=== PATIENT | female | born 1950 | race Caucasian/White ===

== ENCOUNTER → 2017-04-21 | Day surgery (SDC) | payer BC ==
[2017-04-10 15:35] VITALS: Ht 167.6 cm; Wt 57.3 kg
[~2017-04-21] VITALS: Ht 167.6 cm; Wt 57.3 kg
[~2017-04-21] MED LIST: ATROPINE SULFATE 0.1 MG/ML 5ML SYR IV PRN; CHOL2000 PO; EpHEDrine SULFATE INJ 50 MG/ML AMP IV PRN; FLAX1CAP11 PO; GLUCTAB7 PO; LEVE500T14 PO; LIDOCAINE HCL 2% 2 ML VIAL (20MG/ML) ONE; MESA800T6 PO; MULT-506 PO; PHENYLEPHRINE 100MCG/ML 5ML SYR ONE; PROPOFOL IV EMULSION 10 MG/ML 20 ML VIAL IV ONE
--- NOTE | 2017-04-21 11:49 | Endo History and Physical ---
History & Physical Date of Service: Apr 21, 2017. Chief Complaint: ULCERATIVE COLITIS Referring Physician: DR DIETRICH History of Present Illness 66 yo CF who presents for colonoscopy secondary to Ulcerative colitis. Past Medical History Asthma, Gastrointestinal Disorder, Seizure Disorder Past Surgical History Hx Cardiac Surgery: No Hx Internal Defibrillator: No Hx Pacemaker: No Hx Abdominal Surgery: Yes (OVARIAN CYST REMOVAL) Hx Post-Op Nausea and Vomiting: Yes Hx Cancer Surgery: Yes (MOHS ON NOSE) Hx Thoracic Surgery: No Hx Orthopedic: Yes (LEFT BUNIONECTOMY) Hx Urinary Tract Surgery: No Family History Colon CA Social History Smoking Status: Never Smoker Hx Substance Use: No Hx Alcohol Use: Yes (RARELY) Allergies Coded Allergies: No Known Allergies (Unverified , 04/21/17) Current Medications Reported Home Medications Medications Dose Route/Sig Max Daily Dose Days Date Category Flax Seed Oil (Flaxseed (Linseed)) 1 Cap Cap 1 Cap PO QAM 04/10/17 Reported Vitamin D3 (Cholecalciferol) 2,000 Unit Cap 1 Cap PO QAM 90 04/10/17 Reported Keppra Xr (Levetiracetam) 500 Mg Tab 1,000 Mg PO BID 03/09/14 Reported Multivitamin (Multivitamins) Tab 1 Tab PO QAM 03/09/14 Reported Asacol Hd (Mesalamine) 800 Mg Tab 800 Mg PO TID 03/09/14 Reported Vital Signs Weight (Kilograms): 57.27 Height (Feet): 5 Height (Inches): 6 Date Time Temp Pulse Resp B/P (MAP) Pulse Ox O2 Delivery O2 Flow Rate FiO2 04/21/17 11:02 36.6 92 18 113/66 (82) 98 Room Air Physical Exam General Appearance: WD/WN, no apparent distress Respiratory/Chest: Auscultation: breath sounds normal Cardiovascular: Heart Auscultation: RRR Abdomen: Bowel Sounds: normal Inspection & Palpation: soft, non-distended, no tenderness, guarding & rebound Assessment and Plan Assessment: 66 yo CF who presents for colonoscopy secondary to Ulcerative colitis. Plan: Proceed with colonoscopy.
--- NOTE | 2017-04-21 12:37 | Discharge Instructions ---
Endoscopy Patient Instructions Date / Procedure(s) Performed Apr 21, 2017. Colonoscopy Allergy Information Coded Allergies: No Known Allergies (Unverified , 04/21/17) Discharge Date / Findings Apr 21, 2017. Random colon biopsies Internal hemorrhoids Medication Instructions OK to resume all medications today as prescribed Reported Home Medications Medications Dose Route/Sig Max Daily Dose Days Date Category Flax Seed Oil (Flaxseed (Linseed)) 1 Cap Cap 1 Cap PO QAM 04/10/17 Reported Vitamin D3 (Cholecalciferol) 2,000 Unit Cap 1 Cap PO QAM 90 04/10/17 Reported Keppra Xr (Levetiracetam) 500 Mg Tab 1,000 Mg PO BID 03/09/14 Reported Multivitamin (Multivitamins) Tab 1 Tab PO QAM 03/09/14 Reported Asacol Hd (Mesalamine) 800 Mg Tab 800 Mg PO TID 03/09/14 Reported Provider Instructions Activity Restrictions - No exercising or heavy lifting for 24 hours. - Do not drink alcohol the day of the procedure. - Do not drive a car or operate machinery until the day after the procedure. - Do not make any important decisions or sign important papers in 24 hours after the procedure. Following Day: - Return to full activity which may include returning to work/school. Diet Start your diet with liquids and light foods (jello, soup, juice, toast). Then eat your usual diet if not nauseated. Treatment For Common After Affects For mild abdominal pain, bloating, or excessive gas: - Rest - Eat lightly - Lie on right side Follow-Up Information Follow-up with DR DIETRICH as scheduled Anesthesia Information What You Should Know You have had a procedure that required some medicine to reduce anxiety and discomfort. This treatment is called moderate sedation. After receiving the treatment, you may be sleepy, but you will be able to breathe on your own. The effects of the treatment may last for several hours. Follow these instructions along with Activity/Diet recommendations noted above: * Do NOT do anything where dizziness or clumsiness would be dangerous. * Rest quietly at home today, then you can be up and about tomorrow. * Have a responsible person stay with you the rest of today. * You may have had an I.V. today. If so, you may take the dressing off later today. Recommendations Call your doctor if: * Trouble breathing * Continuous vomiting for more than 24 hours * Temperature above 101 degrees * Severe abdominal pain or bloating * Pain not relieved by pain medicine ordered * There is increased drainage or redness from any incision * A large amount of rectal bleeding greater than 2-3 tablespoons. (If you had a polyp/s removed or have hemorrhoids, a small amount of blood - from the rectum is to be expected.) * You have any unanswered questions or concerns. IN THE EVENT OF A SERIOUS EMERGENCY, GO TO THE NEAREST EMERGENCY ROOM Your discharge instructions were prepared by provider Andrzej Franklin. Patient Instructions Signature Page Adilene Allen Patient (or Guardian) Signature/Date: I have read and understand the instructions given to me by my caregivers. Caregiver/RN/Doctor Signature/Date: The above-named patient and/or guardian has received patient instructions on this date. + Original Patient Signature Page (only) stays with chart. Please make copy for patient.
--- NOTE | 2017-04-21 12:44 | GI REPORT ---
Procedure Date: 04/21/2017 11:57 AM Procedure: Colonoscopy Indications: Follow-up of chronic ulcerative pancolitis Medicines: Monitored Anesthesia Care Complications: No immediate complications. Estimated Blood Loss: Estimated blood loss: none. Procedure: Pre-Anesthesia Assessment: - Prior to the procedure, a History and Physical was performed, and patient medications and allergies were reviewed. The patient's tolerance of previous anesthesia was also reviewed. The risks and benefits of the procedure and the sedation options and risks were discussed with the patient. All questions were answered, and informed consent was obtained. Prior Anticoagulants: The patient has taken aspirin, last dose was 1 day prior to procedure. ASA Grade Assessment: II - A patient with mild systemic disease. After reviewing the risks and benefits, the patient was deemed in satisfactory condition to undergo the procedure. After I obtained informed consent, the scope was passed under direct vision. Throughout the procedure, the patient's blood pressure, pulse, and oxygen saturations were monitored continuously. The scope was introduced through the anus and advanced to the terminal ileum. The colonoscopy was performed without difficulty. The patient tolerated the procedure well. The quality of the bowel preparation was good. The terminal ileum, ileocecal valve, appendiceal orifice, and rectum were photographed. Findings: Inflammation characterized by erythema was found in a continuous and circumferential pattern from the rectum to the cecum. This was mild in severity. Several random biopsies were obtained with cold forceps for histology in the entire colon. Non-bleeding internal hemorrhoids were found during retroflexion. The hemorrhoids were small. Impression: - Inflammation was found from the rectum to the cecum secondary to quiescent ulcerative colitis. - Non-bleeding internal hemorrhoids. - Several random biopsies were obtained in the entire colon. Recommendation: - Resume previous diet. - Continue present medications. - Repeat colonoscopy for surveillance based on pathology results. - Return to primary care physician as previously scheduled. Andrzej Franklin DO 04/21/2017 12:44:01 PM This report has been signed electronically. Note Initiated On: 04/21/2017 11:57 AM I attest to the content of the Intraoperative Record and orders documented therein, exceptions below
--- NOTE | 2017-04-21 13:00 | Anesthesiology Progress Note ---
Anesthesia Post Op Note Date & Time Apr 21, 2017 at 12:59 Vital Signs Pain Intensity: 0 Vital Signs Past 12 Hours Date Time Temp Pulse Resp B/P (MAP) Pulse Ox O2 Delivery O2 Flow Rate FiO2 04/21/17 12:51 61 16 101/59 (73) 99 Room Air 04/21/17 12:36 83 16 98/55 (69) 99 Room Air 04/21/17 11:02 36.6 92 18 113/66 (82) 98 Room Air Notes Mental Status: alert / awake / arousable, participated in evaluation Pt Amnestic to Procedure: Yes Nausea / Vomiting: adequately controlled Pain: adequately controlled Airway Patency, RR, SpO2: stable & adequate BP & HR: stable & adequate Hydration State: stable & adequate Anesthetic Complications: no major complications apparent
[2017-04-21 13:06] VITALS: BP 97/66; PULSE 67; O2SAT 98
== END | disposition home or self-care (01) ==
LOC: C.GI 10:41
PROVIDERS: ATTEND Internal Medicine
DX: K51.00 Ulcerative (chronic) pancolitis without complications (principal); K64.8 Other hemorrhoids; J45.909 Unspecified asthma, uncomplicated; Z80.0 Family history of malignant neoplasm of digestive organs; Z85.820 Personal history of malignant melanoma of skin; R56.9 Unspecified convulsions

== ENCOUNTER → 2018-04-30 | Outpatient (CLI) | payer BC ==
[~2018-04-30] MED LIST changes: -ATROPINE SULFATE 0.1 MG/ML 5ML SYR IV PRN; -EpHEDrine SULFATE INJ 50 MG/ML AMP IV PRN; -GLUCTAB7 PO; -LIDOCAINE HCL 2% 2 ML VIAL (20MG/ML) ONE; +MESA1TAB4 PO; -MESA800T6 PO; -PHENYLEPHRINE 100MCG/ML 5ML SYR ONE; -PROPOFOL IV EMULSION 10 MG/ML 20 ML VIAL IV ONE
== END | disposition home or self-care (01) ==
LOC: C.PAPS 12:03
PROVIDERS: ATTEND Obstetrics & Gynecology
DX: Z01.419 Encounter for gynecological examination (general) (routine) without abnormal findings (principal)

== ENCOUNTER → 2018-05-11 | Outpatient (CLI) | payer BC ==
[2018-05-11 10:13] LABS: BASO % 0.7 %; BASO ABS # 0.03 K/uL (0-0.2); EOS % 3.5 %; EOS ABS # 0.15 K/uL (0-0.5); HEMATOCRIT 40.5 % (37-47); HEMOGLOBIN 13.3 g/dL (12.0-16.0); IG# 0.01 K/uL (0.00-0.02); LYMPH % 28.4 %; MEAN CELL VOLUME 94.2 fL (80-100); MEAN CORPUSCULAR HEMOGLOBIN 30.9 pg (25-34); MEAN CORPUSCULAR HGB CONC 32.8 g/dl (32-36); MEAN PLATELET VOLUME 8.6 fL (7.4-10.4); MONO % 8.3 %; MONO ABS # 0.35 K/uL (0.11-0.59); NEUT % 58.9 %; NEUT ABS # 2.49 K/uL (1.4-6.5); PLATELET COUNT 282 K/uL (130-400); RED CELL DISTRIBUTION WIDTH CV 12.7 % (11.5-14.5); RED CELL DISTRIBUTION WIDTH SD 43.5 fL (36.4-46.3); WHITE BLOOD COUNT 4.23 K/uL (4.8-10.8)
[2018-05-11 10:26] LABS: HEMOGLOBIN A1C 5.7 % (4.5-5.6)
[2018-05-11 11:08] LABS: ALBUMIN 3.6 gm/dl (3.4-5.0); ALKALINE PHOSPHATASE 90 U/L (45-117); ALT/SGPT 19 U/L (12-78); AST/SGOT 15 U/L (15-37); BLOOD UREA NITROGEN 14 mg/dl (7-18); CALCIUM 9.1 mg/dl (8.5-10.1); CARBON DIOXIDE 27 mmol/L (21-32); CHOLESTEROL 185 mg/dl (0-200); CREATININE 0.86 mg/dl (0.60-1.20); GLUCOSE 90 mg/dl (70-99); LDL CHOLESTEROL CALCULATED 89 mg/dl; POTASSIUM 4.2 mmol/L (3.5-5.1); SODIUM 139 mmol/L (136-145); TRANSFERRIN 202 mg/dl (200-360); URIC ACID 3.3 mg/dl (2.6-7.2)
== END | disposition home or self-care (01) ==
LOC: C.LAB 09:33
PROVIDERS: ATTEND Family Medicine
DX: R73.09 Other abnormal glucose (principal); E55.9 Vitamin D deficiency, unspecified; D51.9 Vitamin B12 deficiency anemia, unspecified; E78.9 Disorder of lipoprotein metabolism, unspecified; R53.83 Other fatigue